=== PATIENT | female | born 1985 | race Caucasian/White ===

== ENCOUNTER 2016-12-15 12:31 | Day surgery (SDC) | payer BC ==
[2016-12-15] MEDS ORDERED: LIDOCAINE HCL 1% MPF SOL ONE (12:40)
[2016-12-15] MEDS ORDERED: PROPOFOL 500 MG/50 ML EMU IV ONE ×2 (12:40→14:14)
[2016-12-15] MEDS ORDERED: DEXAMETHASONE 20 MG/5 ML (4 MG/ML SOL) ONE (12:40)
[2016-12-15] MEDS ORDERED: MIDAZOLAM 2 MG/2 ML SOL ONE (12:40)
[2016-12-15] MEDS ORDERED: FENTANYL 100MCG/2ML SOL ONE ×2 (12:40→14:50)
[2016-12-15] MEDS ORDERED: ONDANSETRON HCL 4 MG/2 ML SOL ONE ×2 (12:40→17:23)
[2016-12-15] MEDS ORDERED: KETAMINE HYDROCHLORIDE 50 MG/ML SOL ONE (12:41)
[2016-12-15] MEDS ORDERED: LIDOCAINE 2% W/ EPI MPF 20 ML SOL ONE (13:03)
[2016-12-15] MEDS ORDERED: METOCLOPRAMIDE HYDROCHLORIDE 5 MG/ML SOL ONE (13:18)
[2016-12-15] MEDS ORDERED: CEFAZOLIN SODIUM 1 GM PDS ONE (13:18)
[2016-12-15] MEDS: BUPIVACAINE HCL 0.5% MPF 10 ML SOL ONE ×4 (13:40→14:40)
[2016-12-15] MEDS ORDERED: PROPOFOL 10 MG/ML EMU IV ONE (15:22)
[2016-12-15 16:07] VITALS: TEMP 97.2
[2016-12-15] MEDS ORDERED: KETOROLAC TROMETHAMINE 30 MG/ML SOL ONE (16:26)
[2016-12-15] MEDS: HYDROMORPHONE 1 MG/ML SYRINGE ONE ×2 (16:27→16:50)
[2016-12-15 17:25] VITALS: BP 115/72; PULSE 70; RESP 16; O2SAT 93
[2016-12-15] MEDS ORDERED: PROMETHAZINE HYDROCHLORIDE 25 MG/ML SOL ONE (17:47)
== END 2016-12-15 18:15 | disposition home or self-care (01) ==
LOC: SURG 12:31
PROVIDERS: ATTEND Surgery
DX: I83.811 Varicose veins of right lower extremity with pain (principal); I83.91 Asymptomatic varicose veins of right lower extremity
CPT/HCPCS: 37700; 37765; 84703; 99001; J0690; J1100; J1170; J1885; J2001; J2250; J2405 ×2; J2550; J2704 ×3; J2765; J3010 ×2